=== PATIENT | female | born 1995 | race Caucasian/White ===

== ENCOUNTER 2019-02-10 14:56 | Emergency (ER) | payer BC ==
[~2019-02-10] VITALS: Ht 167.6 cm; Wt 91.9 kg
[2019-02-10 15:00] VITALS: TEMP 98.3
[2019-02-10 16:02] LABS: ALBUMIN 4.4 gm/dL (3.5-5.0); BASO % 0.4 % (0.0-2.0); BILIRUBIN,TOTAL 0.2 mg/dL (0.0-1.0); C-REACTIVE PROTEIN 1.2 mg/dL (0.0-0.9); CALCIUM 9.5 mg/dL (8.4-10.2); CREATININE, serum 0.75 (0.52-1.25); EOS # 0.1 (0.0-0.7); GRAN # 5.5 (1.4-6.5); GRAN % 60.9 % (42.2-75.2); HEMATOCRIT 38.4 % (37.0-47.0); HEMOGLOBIN 12.9 g/dl (12.5-16.0); LYMPH % 32.6 % (20.0-51.0); MEAN CELL VOLUME 86 fl (80.0-100.0); MEAN CORPUSCULAR HEMOGLOBIN 29 pg (27.0-31.0); MEAN CORPUSCULAR HGB CONC 34 g/dl (33.0-37.0); MEAN PLATELET VOLUME 9.7 fl (7.4-10.4); MONO # 0.5 (0.1-0.6); MONO % 4.9 % (1.7-9.3); PLATELET COUNT 293 K/mm3 (130-400); POTASSIUM 3.7 mmol/L (3.4-5.0); RED BLOOD COUNT 4.47 M/mm3 (4.10-5.30); REDCELL DISTRIBUTION WIDTH-CV 12.4 % (11.5-14.5); TOTAL PROTEIN 7.9 gm/dL (6.4-8.2)
[2019-02-10] MEDS ORDERED: ATIVAN 0.50.5 MG/TAB PO (17:01)
[2019-02-10 17:15] VITALS: BP 130/97; PULSE 88
== END 2019-02-10 17:28 | disposition home or self-care (01) ==
LOC: COL.ER 14:56
PROVIDERS: Emergency Medicine
DX: N93.9 Abnormal uterine and vaginal bleeding, unspecified (principal); R10.84 Generalized abdominal pain
CPT/HCPCS: J1885; J2060; J7030